=== PATIENT | male | born 1965 | race Caucasian/White ===

== ENCOUNTER 2017-11-25 16:22 | Emergency (ER) | payer OTHER ==
[2017-11-25] MEDS ORDERED: Ketorolac 60 MG/2 ML SDV IM ONE (17:04)
--- NOTE | 2017-11-25 17:12 | EDM.PDOC ---
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 Denies any loss of consciousness Patient walked into the emergency department Review of Systems: As per history of present illness and below otherwise all systems reviewed and negative. Past medical history: As per history of present illness and as reviewed below otherwise noncontributory. Surgical history: As per history of present illness and as reviewed below otherwise noncontributory. Social history: No reported history of drug or alcohol abuse. Family history: As per history of present illness and as reviewed below otherwise noncontributory. Physical exam: Alert and oriented gentleman answering questions appropriately in full sentences without any shortness of breath. He is nontoxic in appearance. Skin is intact without ecchymosis or laceration. HEENT: Atraumatic, normocehpalic, pupils reactive, negative for conjunctival pallor or scleral icterus, mucous membranes moist, throat clear, neck supple, nontender, trachea midline. Tender upon palpation to the scalp line above the left eyebrow no hematoma is noted. Lungs: Clear to auscultation, breath sounds equal bilaterally, chest non tender. Heart: S1S2, regular, negative for clicks, rubs, or JVD. Abdomen: Soft, nondistended, nontender. Negative for masses or hepatossplenmegaly. Negative for costovertebral tenderness. Pelvis: Stable nontender. Genitourinary: Deferred. Rectal: Deferred Extremities: Atraumatic, negative for cords or calf pain. Neurovascular unremarkable. Neuro: Awake, alert, oriented. Cranial nerves II through XII unremarkable. Cerebellum unremarkable. Motor and sensory unremarkable throughout. Exam nonfocal. Grossly normal neurological. On dresser equal Discussed with the patient no fractures were noted on examination neurologic is grossly intact Diagnostics: []X-ray skull Therapeutics: []Toradol IM Impression: []Contusion left scalp Plan: []Discharged home Head injury instruction sheet Follow-up with your primary care provider next week return to the emergency department over the weekend if symptoms worsen Definitive disposition and diagnosis as appropriate pending reevaluation and review of above. Onset: Today, Sudden Duration: Minutes: Location: Reports: Head Quality: Reports: Ache Severity: Moderate Improves with: Reports: None Worsens with: Reports: None Associated Symptoms: Reports: No Other Symptoms Left Headache Pain Score (Numeric/FACES): 5 - Related Data Allergies Allergy/AdvReac Type Severity Reaction Status Date / Time No Known Allergies Allergy Verified 11/25/17 16:51 Home Meds: Home Meds Lisinopril 20 mg PO DAILY 11/25/17 [History] SUMAtriptan [Imitrex] 20 mg PO ASDIRECTED 11/25/17 [History] Venlafaxine [Effexor] 75 mg PO DAILY 11/25/17 [History] Zolpidem Tartrate [Ambien] 5 mg PO BEDTIME PRN 11/25/17 [History] glipiZIDE [Glipizide ER] 11/25/17 [History] metFORMIN HCl [Metformin HCl] 1,000 mg PO BID 11/25/17 [History] Past Medical History Cardiovascular History: Reports: Hypertension Respiratory History: Reports: Sleep Apnea Neurological History: Reports: Migraines Endocrine/Metabolic History: Reports: Diabetes, Type II - Infectious Disease History Infectious Disease History: Reports: Chicken Pox, Measles Social & Family History - Family History Family Medical History: Noncontributory - Tobacco Use Smoking Status *Q: Never Smoker - Recreational Drug Use Recreational Drug Use: No ED ROS GENERAL - Review of Systems Review Of Systems: ROS reveals no pertinent complaints other than HPI. ED EXAM, HEAD INJURY - Physical Exam Exam: See Below (see dictation) Course - Vital Signs Last Recorded V/S: Last Vital Signs Temp 36.8 C 11/25/17 16:46 Pulse 103 H 11/25/17 16:46 Resp 16 11/25/17 16:46 BP 132/86 11/25/17 16:46 Pulse Ox 95 11/25/17 16:46 - Orders/Labs/Meds Orders: Active Orders 24 hr Category Date Time Status Skull Less 4V [CR] Stat Exams 11/25/17 17:04 Taken Meds: Medications Discontinued Medications Generic Name Dose Route Start Last Admin Trade Name Shamika PRN Reason Stop Dose Admin Ketorolac Tromethamine 60 mg 11/25/17 17:04 11/25/17 17:20 Toradol IM 11/25/17 17:05 60 mg ONETIME ONE Administration Departure - Departure Time of Disposition: 18:01 Disposition: Home, Self-Care 01 Condition: Good Clinical Impression: Contusion of scalp Qualifiers: Encounter type: initial encounter Qualified Code(s): S00.03XA - Contusion of scalp, initial encounter - Discharge Information *PRESCRIPTION DRUG MONITORING PROGRAM REVIEWED*: Not Applicable *COPY OF PRESCRIPTION DRUG MONITORING REPORT IN PATIENT DARCY: Not Applicable Instructions: Contusion, Sxfj-ti-Oscy, Head Injury, Adult, [id number] Referrals: PCP,None [Primary Care Provider] - Forms: ED Department Discharge Additional Instructions: The following information is given to patients seen in the emergency department who are being discharged to home. This information is to outline your options for follow-up care. We provide all patients seen in our emergency department with a follow-up referral. The need for follow-up, as well as the timing and circumstances, are variable depending upon the specifics of your emergency department visit. If you don't have a primary care physician on staff, we will provide you with a referral. We always advise you to contact your personal physician following an emergency department visit to inform them of the circumstance of the visit and for follow-up with them and/or the need for any referrals to a consulting specialist. The emergency department will also refer you to a specialist when appropriate. This referral assures that you have the opportunity for followup care with a specialist. All of these measure are taken in an effort to provide you with optimal care, which includes your followup. Under all circumstances we always encourage you to contact your private physician who remains a resource for coordinating your care. When calling for followup care, please make the office aware that this follow-up is from your recent emergency room visit. If for any reason you are refused follow-up, please contact the [facility] emergency department at and asked to speak to the emergency department charge nurse. Discharged home Head injury instruction sheet Follow-up with your primary care provider next week return to the emergency department over the weekend if symptoms worsen - My Orders Last 24 Hours: My Active Orders 11/25/17 17:04 Skull Less 4V [CR] Stat - Assessment/Plan Last 24 Hours: My Active Orders 11/25/17 17:04 Skull Less 4V [CR] Stat
--- NOTE | 2017-11-28 09:18 | CR ---
EXAM DATE: 11/25/17 PATIENT'S AGE: 52 Patient: MONIKA MORENO Facility: [place], [place] Site . Site : 1965 Study: XRay Head [id number]/17/2018 5:41:19 PM Ordering Physician: Doctor Ponce Final Report: INDICATION: Head injury. COMPARISON: None. FINDINGS/IMPRESSION: Skull/head, 3 views. No fractures are identified. Paranasal sinuses appear normally aerated. Dictated by Rainer Gupta MD @ 11/25/2017 5:43:38 PM Dictated by: Rainer Gupta MD @ 11/25/2017 17:45:03 (Electronic Signature) Report Signed by Proxy. [facility] HOSPITALMelissa
== END 2017-11-25 18:10 | disposition home or self-care (01) ==
LOC: MW.ED 16:22
DX: S00.03XA Contusion of scalp, initial encounter (principal); I10 Essential (primary) hypertension; E11.9 Type 2 diabetes mellitus without complications; Z79.84 Long term (current) use of oral hypoglycemic drugs; Z79.899 Other long term (current) drug therapy; W22.8XXA Striking against or struck by other objects, initial encounter
CPT/HCPCS: 70250; 96372; 99283; J1885

== ENCOUNTER 2019-07-27 15:55 | Emergency (ER) | payer OTHER ==
--- NOTE | 2019-07-27 16:38 | EDM.PDOC ---
ED HPI GENERAL MEDICAL PROBLEM - General Chief Complaint: General Stated Complaint: EXPOSURE Time Seen by Provider: 07/27/19 16:32 Source of Information: Reports: Patient History Limitations: Reports: No Limitations - History of Present Illness INITIAL COMMENTS - FREE TEXT/NARRATIVE: HISTORY AND PHYSICAL: History of present illness: Patient is a 53-year-old male presents to the ED for source exposure. 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 Patient denies any exposure to blood. He reports history of diabetes and hypertension. Patient has no other complaints at this time. Review of systems: As per history of present illness and below otherwise all systems reviewed and negative. Past medical history: As per history of present illness and as reviewed below otherwise noncontributory. Surgical history: As per history of present illness and as reviewed below otherwise noncontributory. Social history: No reported history of drug or alcohol abuse. Family history: As per history of present illness and as reviewed below otherwise noncontributory. Physical exam: General: Patient sitting comfortably in no acute distress and nontoxic appearing HEENT: Atraumatic, normocephalic, pupils reactive, negative for conjunctival pallor or scleral icterus, mucous membranes moist, throat clear, neck supple, nontender, trachea midline. No meningeal signs. Extremities: Atraumatic, negative for cords or calf pain. Neurovascular unremarkable. Neuro: Awake, alert, oriented. Cranial nerves II through XII unremarkable. Cerebellum unremarkable. Motor and sensory unremarkable throughout. Exam nonfocal. Notes: Diagnostics: HIV, Hep C, Hep B Therapeutics: none Prescriptions: none Impression: Exposure Plan: Follow up with primary care provider Return to ED as needed as discussed Definitive disposition and diagnosis as appropriate pending reevaluation and review of above. - Related Data Allergies Allergy/AdvReac Type Severity Reaction Status Date / Time No Known Allergies Allergy Verified 07/27/19 16:20 Home Meds: Home Meds Lisinopril 10 mg PO DAILY 11/25/17 [History] Venlafaxine [Effexor] 75 mg PO DAILY 11/25/17 [History] hydroCHLOROthiazide [Hydrochlorothiazide] 25 mg PO DAILY 07/27/19 [History] sitaGLIPtin Phos/Metformin HCl [Janumet 50-1,000 MG] 1 tab PO BID 07/27/19 [ History] Past Medical History Cardiovascular History: Reports: Hypertension Respiratory History: Reports: Sleep Apnea Neurological History: Reports: Migraines Endocrine/Metabolic History: Reports: Diabetes, Type II - Infectious Disease History Infectious Disease History: Reports: Chicken Pox, Measles - Past Surgical History Musculoskeletal Surgical History: Reports: Shoulder Surgery Other Musculoskeletal Surgeries/Procedures:: x2 shoulder Social & Family History - Family History Family Medical History: Noncontributory - Tobacco Use Smoking Status *Q: Never Smoker - Recreational Drug Use Recreational Drug Use: No ED ROS GENERAL - Review of Systems Review Of Systems: Comprehensive ROS is negative, except as noted in HPI. ED EXAM, GENERAL - Physical Exam Exam: See Below (see dictation) Course - Vital Signs Last Recorded V/S: Last Vital Signs Temp 96.4 F L 07/27/19 16:18 Pulse 104 H 07/27/19 16:18 Resp 18 07/27/19 16:18 BP 123/82 07/27/19 16:18 Pulse Ox 95 07/27/19 16:18 - Orders/Labs/Meds Orders: Active Orders 24 hr Category Date Time Status HEPATITIS B SURFACE AB QUANT [CHEM] Routine Lab 07/27/19 16:35 Ordered HEPATITIS B SURFACE AG [CHEM] Routine Lab 07/27/19 16:35 Ordered HEPATITIS C ANTIBODY [CHEM] Routine Lab 07/27/19 16:35 Ordered HIV12 AG/AB 4TH GEN [CHEM] Routine Lab 07/27/19 16:35 Ordered Departure - Departure Time of Disposition: 16:39 Disposition: Home, Self-Care 01 Condition: Good Clinical Impression: History of exposure to hazardous bodily fluids - Discharge Information Referrals: Curtis Cates MD [Primary Care Provider] - Forms: ED Department Discharge Additional Instructions: The following information is given to patients seen in the emergency department who are being discharged to home. This information is to outline your options for follow-up care. We provide all patients seen in our emergency department with a follow-up referral. The need for follow-up, as well as the timing and circumstances, are variable depending upon the specifics of your emergency department visit. If you don't have a primary care physician on staff, we will provide you with a referral. We always advise you to contact your personal physician following an emergency department visit to inform them of the circumstance of the visit and for follow-up with them and/or the need for any referrals to a consulting specialist. The emergency department will also refer you to a specialist when appropriate. This referral assures that you have the opportunity for follow-up care with a specialist. All of these measure are taken in an effort to provide you with optimal care, which includes your follow-up. Under all circumstances we always encourage you to contact your private physician who remains a resource for coordinating your care. When calling for follow-up care, please make the office aware that this follow-up is from your recent emergency room visit. If for any reason you are refused follow-up, please contact the [facility] Emergency Department at and asked to speak to the emergency department charge nurse. [facility] [address] [place] [address] [address] [address] Follow up with primary care provider Return to ED as needed as discussed Sepsis Event Note - Evaluation Sepsis Screening Result: No Definite Risk - Focused Exam Vital Signs: Vital Signs Temp Pulse Resp BP Pulse Ox 07/27/19 16:18 96.4 F L 104 H 18 123/82 95 Date Exam was Performed: 07/27/19 Time Exam was Performed: 16:38 - My Orders Last 24 Hours: My Active Orders 07/27/19 16:35 HEPATITIS B SURFACE AB QUANT [CHEM] Routine HEPATITIS B SURFACE AG [CHEM] Routine HEPATITIS C ANTIBODY [CHEM] Routine HIV12 AG/AB 4TH GEN [CHEM] Routine - Assessment/Plan Last 24 Hours: My Active Orders 07/27/19 16:35 HEPATITIS B SURFACE AB QUANT [CHEM] Routine HEPATITIS B SURFACE AG [CHEM] Routine HEPATITIS C ANTIBODY [CHEM] Routine HIV12 AG/AB 4TH GEN [CHEM] Routine
== END 2019-07-27 18:26 | disposition home or self-care (01) ==
LOC: MW.ED 15:55
DX: Z77.21 Contact with and (suspected) exposure to potentially hazardous body fluids (principal); E11.9 Type 2 diabetes mellitus without complications; I10 Essential (primary) hypertension; Z79.84 Long term (current) use of oral hypoglycemic drugs; Z79.899 Other long term (current) drug therapy
CPT/HCPCS: 36415; 86706; 86803; 87340; 87389; 99282; 99283

== ENCOUNTER 2019-09-08 04:08 | Emergency (ER) | payer OTHER ==
[2019-09-08] MEDS ORDERED: Acetaminophen 500 MG Tab PO ONE (04:36)
[2019-09-08] MEDS ORDERED: Ibuprofen 400 MG Tab PO ONE (04:36)
--- NOTE | 2019-09-08 05:23 | CR ---
INDICATION: proximal humerus pain after lifting TECHNIQUE: Left shoulder 3 views. COMPARISON: None. FINDINGS: Bones: Alignment is normal. No fractures or bone lesions. Joint spaces: Unremarkable. Soft tissues: Unremarkable. IMPRESSION: Unremarkable left shoulder. Dictated by: Curtis Burris MD @ 09/08/2019 05:23:09 (Electronically Signed)
--- NOTE | 2019-09-08 05:34 | EDM.PDOC ---
ED HPI GENERAL MEDICAL PROBLEM - General Chief Complaint: Upper Extremity Injury/Pain Stated Complaint: LT SHOULDER PAIN Time Seen by Provider: 09/08/19 04:09 Source of Information: Reports: Patient History Limitations: Reports: No Limitations - History of Present Illness INITIAL COMMENTS - FREE TEXT/NARRATIVE: 54-year-old male with a past medical history of hypertension and diabetes presenting with left shoulder pain. 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 Pain is worse with movement and better with rest. Nonradiating. Reports remote history of a rotator cuff injury in the same shoulder. No self treatment prior to arrival, no other complaints. Left Lower Shoulder Pain Score (Numeric/FACES): 6 - Related Data Allergies Allergy/AdvReac Type Severity Reaction Status Date / Time No Known Allergies Allergy Verified 09/08/19 04:19 Home Meds: Home Meds Lisinopril 10 mg PO DAILY 11/25/17 [History] Venlafaxine [Effexor] 75 mg PO DAILY 11/25/17 [History] hydroCHLOROthiazide [Hydrochlorothiazide] 25 mg PO DAILY 07/27/19 [History] sitaGLIPtin Phos/Metformin HCl [Janumet 50-1,000 MG] 1 tab PO BID 07/27/19 [ History] Past Medical History HEENT History: Reports: None Cardiovascular History: Reports: Hypertension Respiratory History: Reports: Sleep Apnea Neurological History: Reports: Migraines Endocrine/Metabolic History: Reports: Diabetes, Type II - Infectious Disease History Infectious Disease History: Reports: Chicken Pox, Measles - Past Surgical History Musculoskeletal Surgical History: Reports: Shoulder Surgery Other Musculoskeletal Surgeries/Procedures:: x2 shoulder Social & Family History - Family History Family Medical History: Noncontributory - Tobacco Use Smoking Status *Q: Never Smoker Second Hand Smoke Exposure: No - Caffeine Use Caffeine Use: Reports: None - Recreational Drug Use Recreational Drug Use: No Review of Systems - Review of Systems Review Of Systems: See Below Cardiovascular: Denies: Chest Pain Musculoskeletal: Reports: Shoulder Pain. Denies: Neck Pain, Arm Pain, Back Pain Skin: Denies: Wound Neurological: Reports: Tingling (Left 3rd/4th fingers). Denies: Weakness ED EXAM, GENERAL - Physical Exam Exam: See Below Free Text/Narrative:: Vital signs reviewed. Nursing notes reviewed. Constitutional: Awake, alert, non-distressed. Head: Normocephalic, atraumatic. Eyes: EOMI, conjunctiva normal, no discharge, no scleral icterus. Ears, Nose, Throat: External ears and ears normal, moist oral mucosa. Cardiovascular: 2+ left radial pulse, capillary refill less than 2 seconds. Pulmonary: normal work of breathing, no accessory muscle use. Abdomen/GI: Soft, nontender, nondistended, no guarding or rigidity, no masses. Musculoskeletal: No deformities. There is to palpation over the anterior aspect of the left proximal humerus along with the left trapezius. Positive empty can sign on testing of the left rotator cuff muscles. Significant pain with asking the patient to abduct the left arm above 90 degrees horizontal. Integumentary: Appropriate color for ethnicity, warm, dry, no pallor or jaundice , no rash. Neurologic: Alert, answering questions appropriately, normal speech, no facial droop, moving all extremities well. Sensation intact to light touch to all fingers of the left upper extremity. Able to make okay sign, thumbs up, and abduct all fingers normally. 5/5 strength to the right wrist elbow and shoulder joint. Psychiatric: Appropriate mood and affect, normal thought process. Course - Vital Signs Text/Narrative:: Patient hemodynamically stable, afebrile, well-appearing, looks nontoxic. Differential diagnosis includes but is not limited to: Rotator cuff tear, fracture, dislocation, neuropathy, soft tissue injury, etc. On examination patient is neurovascular intact in the left upper extremity. 2+ radial pulse noted. Normal nerves system function. We obtained x-rays of the left shoulder, which were negative for bony injury. Given acetaminophen and ibuprofen. Physical examination results are consistent with supraspinatus tendinopathy of the left shoulder joint, which is the same muscle that the patient had a rotator cuff injury in the past. Patient is stable to discharge home with the plan for treatment with acetaminophen, ibuprofen, an arm sling, light duty, and follow-up with orthopedic surgery clinic in 1 to 2 weeks. Strict emergency department return precautions were provided, patient indicated understanding. All questions were answered prior to departure. Discharged in good condition. Last Recorded V/S: Last Vital Signs Temp 35.9 C L 09/08/19 04:16 Pulse 99 09/08/19 04:16 Resp 18 09/08/19 04:16 BP 140/93 H 09/08/19 04:16 Pulse Ox 98 09/08/19 04:16 - Orders/Labs/Meds Meds: Medications Discontinued Medications Generic Name Dose Route Start Last Admin Trade Name Shamika PRN Reason Stop Dose Admin Acetaminophen 1,000 mg 09/08/19 04:36 09/08/19 04:50 Tylenol Extra Strength PO 09/08/19 04:37 1,000 mg ONETIME ONE Administration Ibuprofen 400 mg 09/08/19 04:36 09/08/19 04:49 Motrin PO 09/08/19 04:37 400 mg ONETIME ONE Administration Departure - Departure Time of Disposition: 05:30 Disposition: Home, Self-Care 01 Condition: Good Clinical Impression: Injury of left rotator cuff Qualifiers: Encounter type: initial encounter Qualified Code(s): S46.002A - Unspecified injury of muscle(s) and tendon(s) of the rotator cuff of left shoulder, initial encounter - Discharge Information *PRESCRIPTION DRUG MONITORING PROGRAM REVIEWED*: Not Applicable *COPY OF PRESCRIPTION DRUG MONITORING REPORT IN PATIENT DARCY: Not Applicable Instructions: How To Use a Sling, Mlqj-[id number]-Vcfo, Tendinitis, Osxa-am-Qswq Referrals: [facility] - Orthopaedics [Provider Group] - 2 Weeks (For follow-up of suspected rotator cuff injury) Forms: ED Department Discharge Additional Instructions: I recommend [id number] acetaminophen and ibuprofen for pain. You can take 1000 mg of extra strength acetaminophen every 6 hours. You can also take 400-600 mg of ibuprofen every 8 hours. Do not take more than 4000 mg of acetaminophen or 3200 mg of ibuprofen in 24-hour period. Please be sure to follow-up with an orthopedic surgery clinic in the next 1 to 2 weeks for reevaluation of your injury. Return to the emergency department immediately if your symptoms worsen. The following information is given to patients seen in the emergency department who are being discharged to home. This information is to outline your options for follow-up care. We provide all patients seen in our emergency department with a follow-up referral. The need for follow-up, as well as the timing and circumstances, are variable depending upon the specifics of your emergency department visit. If you don't have a primary care physician on staff, we will provide you with a referral. We always advise you to contact your personal physician following an emergency department visit to inform them of the circumstance of the visit and for follow-up with them and/or the need for any referrals to a consulting specialist. The emergency department will also refer you to a specialist when appropriate. This referral assures that you have the opportunity for follow-up care with a specialist. All of these measure are taken in an effort to provide you with optimal care, which includes your follow-up. Under all circumstances we always encourage you to contact your private physician who remains a resource for coordinating your care. When calling for follow-up care, please make the office aware that this follow-up is from your recent emergency room visit. If for any reason you are refused follow-up, please contact the [facility] Emergency Department at and asked to speak to the emergency department charge nurse. If you do not have a primary care physician that is caring for you, you can contact these clinics below to set up an appointment to establish care: [facility] - Primary Care [address] [place] [address] [id number] [address] [address] Sepsis Event Note - Evaluation Sepsis Screening Result: No Definite Risk - Focused Exam Vital Signs: Vital Signs Temp Pulse Resp BP Pulse Ox 09/08/19 04:16 35.9 C L 99 18 140/93 H 98 Date Exam was Performed: 09/08/19 Time Exam was Performed: 07:36
== END 2019-09-08 05:48 | disposition home or self-care (01) ==
LOC: MW.ED 04:08
DX: S46.002A Unspecified injury of muscle(s) and tendon(s) of the rotator cuff of left shoulder, initial encounter (principal); E11.9 Type 2 diabetes mellitus without complications; I10 Essential (primary) hypertension; G43.909 Migraine, unspecified, not intractable, without status migrainosus; Z79.84 Long term (current) use of oral hypoglycemic drugs; Z79.899 Other long term (current) drug therapy; X50.0XXA Overexertion from strenuous movement or load, initial encounter
CPT/HCPCS: 73030; 99283; A9270; 99282